=== PATIENT | female | born 1975 | race Caucasian/White ===

== ENCOUNTER 2019-03-10 09:34 | Inpatient (IN) | payer OTHER ==
[2019-03-07 14:30] VITALS: BMI 24.7
--- NOTE | 2019-03-09 14:30 | HP ---
Admitting History and Physical - Primary Care Physician PCP: Erich Farmer - Admission Chief Complaint: left breast cancer History of Present Illness: Patient is a 43 yo female noted to have a suspicious area of enhancement in the left breast at 1-3 oclock on screening MRI. Patient underwent an MRI guided core bx on 01/2019 showing DCIS, ER and LA positive. 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 History Source: Patient - Past Medical History Pulmonary: Yes: Asthma ...LMP: 02/11/19 - Past Surgical History Additional Past Surgical History: bilateral breast augmentation 2002 - Advance Directives Advance Directives: Yes: Health Care Proxy - Smoking History Smoking history: Never smoked Have you smoked in the past 12 months: No - Alcohol/Substance Use Hx Alcohol Use: Yes (SOCIAL) Home Medications - Allergies Allergies/Adverse Reactions: Allergies Allergy/AdvReac Type Severity Reaction Status Date / Time Penicillins Allergy Severe Hives Verified 03/07/19 14:19 - Home Medications Home Medications: Ambulatory Orders Albuterol Sulfate Inhaler - [Ventolin Hfa Inhaler -] 1 - 2 inh PO PRN PRN Zolpidem Tartrate [Ambien] 10 mg PO HS 03/07/19 Family Medical History Family Hx Cancer: Mother (breast cancer at 63), Sister (breast cancer at 42) Other Family History: maternal aunt breast cancer at 50 Review of Systems - Review of Systems Eyes: reports: Blurred Vision Psychiatric: reports: Anxiety Physical Examination Constitutional: Yes: Well Nourished, Calm Breast(s): Yes: Other (D-cup breasts. Left 1200 area of bruising noted at site of bx. No suspisious masses or adenopathy noted bilaterally.) Problem List - Problems (1) Breast cancer Code(s): C50.919 - MALIGNANT NEOPLASM OF UNSP SITE OF UNSPECIFIED FEMALE BREAST Qualifiers: Laterality: left Assessment/Plan Plan, bilateral mastectomy with implant reconstruction and left sentinel node bx poss andx, lympho
[2019-03-10] MEDS ORDERED: GENTAMICIN SO4 80 MG/2 ML VIAL ONE (14:28)
[2019-03-10] MEDS ORDERED: ceFAZolin SODIUM 1 GM VIAL ONE (14:28)
[2019-03-10] MEDS ORDERED: ISOSULFAN BLUE 10 MG/ML VIAL SQ ONE (14:29)
[2019-03-10] MEDS ORDERED: BUPIVACAINE LIPOSOME/PF (EXPAREL) 266 MG/20 ML VIAL ONE (14:39)
[2019-03-10] MEDS ORDERED: BUPIVACAINE HCL/PF 2.5 MG/ML - 30 ML VIAL IJ ONE (14:40)
[2019-03-10] MEDS ORDERED: HYDROmorphone HCL/PF 1 MG/ML AMP ONE (14:53)
[2019-03-10] MEDS ORDERED: ROCURONIUM BROMIDE 50 MG/5 ML SYRINGE ONE ×2 (14:53→17:01)
[2019-03-10] MEDS ORDERED: PROPOFOL 20 ML ONE ×3 (14:53)
[2019-03-10] MEDS ORDERED: MIDAZOLAM HCL 2 MG/2 ML SINGLE DOSE VIAL ONE (14:54)
[2019-03-10] MEDS ORDERED: BACITRACIN 15 GM TUBE TOPICAL OINTMENT ONE (17:25)
[2019-03-10] MEDS ORDERED: oxyCODONE HCL 5 MG TABLET PO PRN (17:51)
[2019-03-10] MEDS ORDERED: ACETAMINOPHEN 325 MG TABLET (FP) PO PRN (17:51)
[2019-03-10] MEDS ORDERED: DEXTROSE 5%-0.45% SALINE 1,000 ML IV SCH (18:00)
[2019-03-10] MEDS ORDERED: NEOSTIGMINE METHYLSULFATE 0.5 MG/ML - 10 ML MDV ONE (18:03)
[2019-03-10] MEDS ORDERED: SUCCINYLCHOLINE CHLORIDE 200 MG/10 ML SYRINGE ONE (18:05)
[2019-03-10] MEDS ORDERED: BUPIVACAINE LIPOSOME/PF (EXPAREL) 266 MG/20 ML VIAL NR ONE (18:08)
[2019-03-10] MEDS ORDERED: BUPIVACAINE HCL/PF 0.25% (2.5MG/ML) 10 ML VIAL IJ ONE (18:09)
[2019-03-10] MEDS ORDERED: ONDANSETRON 4 MG/2 ML VIAL ONE (18:28)
[2019-03-10] MEDS ORDERED: ONDANSETRON 4 MG/2 ML VIAL IVPUSH PRN (18:39)
[2019-03-10] MEDS ORDERED: HYDROmorphone HCL CARPU-JECT 1 MG/1 ML DISP.SYRIN IVPUSH PRN (18:39)
[2019-03-10] MEDS ORDERED: LACTATED RINGERS SOLUTION 1,000 ML IV SCH (18:45)
[2019-03-10] MEDS ORDERED: ACETAMINOPHEN 325 MG TABLET (FP) ONE (19:24)
--- NOTE | 2019-03-10 20:43 | OP ---
DATE OF OPERATION: 03/10/2019 PREOPERATIVE DIAGNOSIS: Left breast ductal carcinoma in situ. POSTOPERATIVE DIAGNOSIS: Left breast ductal carcinoma in situ. PROCEDURE: Bilateral total nipple-sparing mastectomy through an inframammary approach with left axillary sentinel lymph node biopsy and removal of prior silicone implants with bilateral direct implant reconstruction with Cortiva. ANESTHESIA: General endotracheal anesthesia. PRIMARY SURGEON: Brittany Farmer MD INSTITUTIONAL CUSTODIAN: REMA Gomez Primary surgeon for the implant reconstructions is Dr. Brittany Billy. There were no complications. Briefly, the patient is a 43-year-old, G4, P2, premenopausal white female of [place] descent with a strong family history with a mother who had breast cancer at age 63, and her sister was found to have breast cancer at age 42 and underwent bilateral mastectomy. Her maternal aunt had breast cancer. The patient has a history of undergoing bilateral subpectoral saline implant reconstructions back in 2002. She underwent mammography and ultrasound, March 2018, which was negative, but MRI, January 07, 2019, showed some suspicious enhancement in the left breast 1 and 3 o'clock regions, and MRI core biopsy showed intermediate high-grade DCIS, which was ER/OK positive. MRIs were reviewed and it was felt that the cancer was far enough from the nipple that the patient could get a nipple-sparing mastectomy. She opted on bilateral mastectomies and was seen by Plastic Surgery preoperatively and chose to have direct implant reconstruction. The patient was brought in for the procedure on March 10, 2019. She first underwent a lymphoscintigraphy through a periareolar injection of technetium 99 in the left nipple-areolar complex, which was performed at [facility] and she was brought to the [facility] area. In the holding area, site verification was made and informed consent was obtained. She was marked preoperatively prior to entering the operating room. She was brought in to the operating room and laid on the OR table in a supine position. Venodynes were placed on the lower extremities prior to induction. She received 600 mg of clindamycin prior to incision. She underwent general endotracheal anesthesia. Both breasts were sterilely prepped and draped in the usual fashion. No blue dye was injected, given the nipple-sparing technique. The left axilla was prepped in the field. The left axillary sentinel lymph node biopsy was first performed. Incision was made just below the hair-bearing area of the left axilla and dissection was undertaken, and a blue hot lymph node was easily found in the level 1 region of the left axilla with a 10-second gamma count of 3405. A second node was found in the level 1 region with a 10-second gamma count of 704. Both of these nodes were sent down to Pathology for frozen section, came back negative, so no further nodes were removed. Background counts after removal of these 2 nodes was 72, and no other hot nodes were found. Hemostasis was achieved. At this point, the left breast mastectomy was first performed through an inframammary incision. The skin edges were everted and the breast was retracted inferiorly using Holland clamps. The skin flap was raised using the PEAK radiofrequency device superiorly to the level of the clavicle, medially to the level of the sternum, laterally to the level of the latissimus, and inferiorly below the level of the inframammary fold. The implant was taken out underneath the pectoralis major muscle. The breast was then removed off the pectoralis major muscle from inferior medial to superior lateral using electrocautery and completely removed intact. It was oriented with a long lateral and short superior suture and weighed to allow for appropriate cosmetic result. Specimen radiograph showed removal of both clips in question. A retroareolar biopsy was then taken underneath the left breast nipple-areolar complex, sent for frozen section, came back with some atypia but no cancer, so the nipple was left. A separate anterior margin was then taken around the 12 o'clock region of the left breast skin flap and sent for permanent section with a suture marking the biopsy cavity side. Skin flaps were inspected and trimmed for good cosmetic result to remove all visual breast tissue. Hemostasis was achieved and the wound was copiously irrigated with warm sterile saline. At this point, gloves and instruments were changed and the right mastectomy was performed, again through a symmetrical inframammary approach. The skin edges were everted and the breast was retracted inferiorly using Darin clamps. The skin flap was raised using the PEAK radiofrequency device superiorly to the level of the clavicle, medially to the level of the sternum, laterally to the level of the latissimus, and inferiorly below the level of the inframammary fold. The breast was taken down off the pectoralis major muscle using electrocautery, from inferior medial to superior lateral and the previous implant was also removed prior to removal of the breast. The breast was oriented with a long lateral and short superior suture and weighed to allow for appropriate cosmetic result. It was sent to Pathology in formalin. Skin flaps were inspected and trimmed for good cosmetic result to remove all visual breast tissue. A retroareolar biopsy was taken underneath the right breast nipple-areolar complex and sent for frozen section and came back negative, so the nipple was spared. Hemostasis was achieved and the wound was copiously irrigated with warm sterile saline. At this point, Dr. Billy became the primary surgeon to perform bilateral subpectoral direct implant reconstruction using Cortiva acellular dermal matrix, which was sutured into the inferolateral aspects of both pectoralis major muscle to allow for the direct implant reconstructions. Two Chas drains were placed around each implant and brought through separate stab incisions on the lateral skin flaps and sutured in place using 3-0 nylon suture. They were placed on DANNY self-bulb suction and all wounds were closed using interrupted 3-0 deep dermal PDS suture and a running 4-0 subcuticular PDS suture. Mastisol, Steri-Strips applied over the wounds. The axillary wound was closed as well using interrupted 3-0 deep dermal Vicryl suture and a running 4-0 subcuticular Biosyn suture. Again, Mastisol and Steri-Strips were applied over all the wounds and she was placed in a surgical bra postoperatively. The patient was extubated at the end of the case and will be recovered in the post-anesthesia care unit. She will be admitted postoperatively for pain and wound management. We did use the SPY skin perfusion device at the end of the mastectomy and after the reconstructions, which showed adequate skin perfusion of skin flaps and nipple-areolar complexes. All sponge and needle counts were correct at the end of the case and estimated blood loss was about 150 mL. She was hemodynamically stable throughout. BRITTANY FARMER M.D. [id number]
[2019-03-11] MEDS: oxyCODONE HCL 5 MG TABLET PO PRN ×4 (00:29→20:39)
[2019-03-11] MEDS: ZOLPIDEM TARTRATE 5 MG TABLET PO PRN ×2 (00:33→22:42)
[2019-03-11 08:08] LABS: HEMATOCRIT 32.6 % (32.4-45.2); HEMOGLOBIN 10.5 GM/dl (10.7-15.3); MCH 28.5 pg (25.7-33.7); MCHC 32.2 g/dl (32.0-36.0); MEAN CELL VOLUME 88.3 fl (80-96); MEAN PLT VOLUME 9.3 fl (7.5-11.1); PLATELET COUNT 179 K/MM3 (134-434); RDW 12.2 % (11.6-15.6); WHITE BLOOD COUNT 9.7 K/mm3 (4.0-10.8)
--- NOTE | 2019-03-11 09:08 | PN ---
Progress Note (short form) - Note Progress Note: Surgery POD #1 bilateral mastectomy with implant reconstruction and left sentinel node bx patient seen and examined at bedside. Patient states she had lots of pain overnight and had difficulty sleeping. She has been OOB and ambulating to bathroom-voiding, and tolerating her diet. She denies any CP, SOB, N/V fever or chills. Vital Signs Temp 98.3 F 03/11/19 05:00 Pulse 68 03/11/19 05:00 Resp 19 03/11/19 05:00 BP 104/52 L 03/11/19 05:00 Pulse Ox 95 03/11/19 07:25 Intake & Output 03/10/19 03/10/19 03/11/19 11:59 23:59 11:59 Intake Total 2200 1140 Output Total 580 30 Balance 1620 1110 Weight 140 lb Intake: IV 1700 900 Lactated Ringers Solution 900 1,000 ml @ 75 mls/hr IV ASDIR ARIANA Rx#:[id number] Oral 500 240 Output: Drainage 80 30 Left 40 20 Right 15 10 Urine 300 Void 300 Estimated Blood Loss 200 Other: Voiding Method Bedpan Toilet # Unmeasured Voids Void 1 2 Bowel Movement No No Height 5 ft 3 in Body Mass Index (BMI) 24.7 Weight Measurement Method Standing Scale CBC, BMP 03/11/19 07:25 PE: A&Ox3, NAD unlabored resp on RA Breast: Left breast with some dusky erythema around the areaola @ 3cm in size extending laterally. incisions c,d,i with steri strips in place and no evidence of active d/c. b/l JPs in place. B/L LE compartments soft supple and non-tender with +2 DP pulses. Problem List - Problems (1) Breast cancer Assessment/Plan: POD #1 patient doing well with some pain susy -increase Oxycodone Q4hr PRN pain -OOB as tolerated -keep incisions clean and dry -trend labs and drain output -d/c planning Code(s): C50.919 - MALIGNANT NEOPLASM OF UNSP SITE OF UNSPECIFIED FEMALE BREAST Qualifiers: Laterality: left
--- NOTE | 2019-03-11 09:44 | PN ---
Progress Note, Physician Chief Complaint: S/P bilateral mastectomy with implant reconstruction, left snbx POD#1 History of Present Illness: Patient was seen at the bedside and reports pain overnight but was able to sleep with benadryl. Patient is voiding and tolerating food well. - Current Medication List Current Medications: Active Medications Acetaminophen (Tylenol -) 650 mg PO Q4H PRN PRN Reason: FEVER Last Admin: 03/10/19 19:29 Dose: 650 mg Diphenhydramine HCl (Benadryl Injection -) 12.5 mg IVPB Q4H PRN PRN Reason: FOR ITCHING Last Admin: 03/11/19 02:49 Dose: 12.5 mg Heparin Sodium (Porcine) (Heparin -) 5,000 unit SQ BID ARIANA Dextrose/Sodium Chloride (D5-1/2ns -) 1,000 mls @ 100 mls/hr IV ASDIR ARIANA Levofloxacin (Levaquin 500 Mg Premixed Ivpb -) 500 mg in 100 mls @ 100 mls/hr IVPB DAILY ARIANA; Protocol Lactated Ringer's (Lactated Ringers Solution) 1,000 mls @ 75 mls/hr IV ASDIR ARIANA Ondansetron HCl (Zofran Injection) 4 mg IVPUSH Q6H PRN PRN Reason: NAUSEA AND/OR VOMITING Last Admin: 03/10/19 18:42 Dose: 4 mg Oxycodone HCl (Roxicodone -) 5 mg PO Q4H PRN PRN Reason: PAIN LEVEL 1-5 Stop: 03/11/19 18:38 Last Admin: 03/11/19 05:56 Dose: 5 mg Zolpidem Tartrate (Ambien -) 5 mg PO HS PRN PRN Reason: Insomnia Last Admin: 03/11/19 00:33 Dose: 5 mg - Objective Vital Signs: Vital Signs Temperature 98.3 F 03/11/19 05:00 Pulse Rate 68 03/11/19 05:00 Respiratory Rate 19 03/11/19 05:00 Blood Pressure 104/52 L 03/11/19 05:00 O2 Sat by Pulse Oximetry (%) 95 03/11/19 07:25 Constitutional: Yes: Well Nourished, Calm Breast(s): Yes: Other (Flaps with minimal bruising noted. Left lateral breast flap erythematous area noted without discharge. The steris are C/D/I. Bilateral JPs with serosanginous discharge noted.) Labs: CBC, BMP 03/11/19 07:25 Problem List - Problems (1) Breast cancer Code(s): C50.919 - MALIGNANT NEOPLASM OF UNSP SITE OF UNSPECIFIED FEMALE BREAST Qualifiers: Laterality: left Assessment/Plan Assess S/P bilateral mastectomy with implant reconstruction POD#1 Plan: OOB today with assistance Teach DANNY monitoring Pain meds and axbx as ordered IS 10xs/hourly Plan for discharge in am
--- NOTE | 2019-03-11 10:28 | PN ---
Progress Note (short form) - Note Progress Note: 43F s/p bilateral mastectomy and implant reconstruction, SN biopsy under GA. Report of pain overnight, managed with PO and IV analgesics. Vital Signs Temperature 98.3 F 03/11/19 05:00 Pulse Rate 68 03/11/19 05:00 Respiratory Rate 19 03/11/19 05:00 Blood Pressure 104/52 L 03/11/19 05:00 O2 Sat by Pulse Oximetry (%) 95 03/11/19 07:25 Active Medications Generic Name Dose Route Start Last Admin Trade Name Freq PRN Reason Stop Dose Admin Acetaminophen 650 mg 03/10/19 17:51 03/10/19 19:29 Tylenol - PO 650 mg Q4H PRN Administration FEVER Diphenhydramine HCl 12.5 mg 03/10/19 20:15 03/11/19 02:49 Benadryl Injection - IVPB 12.5 mg Q4H PRN Administration FOR ITCHING Heparin Sodium (Porcine) 5,000 unit 03/11/19 22:00 Heparin - SQ BID ARIANA Dextrose/Sodium Chloride 1,000 mls @ 100 mls/hr 03/10/19 18:00 D5-1/2ns - IV ASDIR ARIANA Levofloxacin 500 mg in 100 mls @ 100 mls/hr 03/11/19 10:00 Levaquin 500 Mg Premixed Ivpb - IVPB DAILY ARIANA Protocol Lactated Ringer's 1,000 mls @ 75 mls/hr 03/10/19 18:45 Lactated Ringers Solution IV ASDIR ARIANA Ondansetron HCl 4 mg 03/10/19 18:39 03/10/19 18:42 Zofran Injection IVPUSH 4 mg Q6H PRN Administration NAUSEA AND/OR VOMITING Oxycodone HCl 5 mg 03/10/19 18:39 03/11/19 05:56 Roxicodone - PO 03/11/19 18:38 5 mg Q4H PRN Administration PAIN LEVEL 1-5 Zolpidem Tartrate 5 mg 03/10/19 17:51 03/11/19 00:33 Ambien - PO 5 mg HS PRN Administration Insomnia - On PO analgesic regimen - No anesthetic complications
[2019-03-11] MEDS ORDERED: BENZOCAINE/MENTH/CETYLPYRD CL 1 EACH LOZENGE MM PRN (12:07)
--- NOTE | 2019-03-11 20:32 | OP ---
DATE OF OPERATION: 03/10/2019 This is a procedure with Brittany Farmer M.D., for bilateral implant and AlloDerm placement and acellular dermal matrix placement in the usual fashion. PREOPERATIVE DIAGNOSES: 1. Bilateral acquired chest wall deformity status post bilateral mastectomy (611.89). 2. Personal history of genetic carcinoma. POSTOPERATIVE DIAGNOSES: 1. Bilateral acquired chest wall deformity status post bilateral mastectomy (611.89). 2. Personal history of genetic carcinoma. PROCEDURE: 1. Right immediate breast reconstruction utilizing immediate insertion of silicone breast implant and AlloDerm reconstruction. 2. Left immediate breast reconstruction utilizing immediate insertion of silicone breast implant and AlloDerm reconstruction. 3. Intravenous injection of indocyanine green dye and intraoperative diagnostic evaluation of non-coronary intraoperative fluorescein vascular angiography x 2. SURGEON: Dr. Michel Billy ANESTHESIA: GENERAL OPERATIVE PROCEDURE IN DETAIL: The patient was taken to the operating room. After induction of general anesthesia in the supine position, both arms were extended and padded. Venodyne boots were placed. The entire chest wall was painted with ChloraPrep solution over its entire extent, and sterile drapes were placed in the usual fashion. The markings, which had been made in the standing position preoperatively, were reoutlined with the patient's knowledge. Time-out procedure was performed. Attention was turned by Dr. Billy to the mastectomies. Bilateral inframammary incisions were made and Dr. Billy performed mastectomies. This will be dictated under separate cover. Upon completion of the mastectomies, the wounds were copiously irrigated and attention was turned to the right breast. A subpectoral dissection was begun on the right breast, superiorly from the second rib, medially to the sternal fibers, and down to the inframammary fold, elevating the pectoralis major muscle from its insertion. The patient had breast tissue and implant removal of 243 g of tissue with the implant weighing 400 g. The left breast had 299 g of tissue removed, and the implant weighed 363 g. The patient had Cortiva 1 mm tailored allograft dermis large size placed bilaterally in a subpectoral position. The patient also had implants placed of Sientra smooth, round high-profile style 107, 650 mL placed bilaterally. She had SPY intraoperative angiogram which showed good blood flow to the nipple areolar complexes bilaterally. The left implant was placed and then sutured with 3-0 Vicryl suture continued along the inframammary fold, completely covering the implant itself. The exact same procedure was carried out symmetrically on the opposite breast. Good symmetry was seen in the sitting position. After the implants were in place, the patient was injected with 10 mL of indocyanine green dye and the Spy imaging system was brought into the field. The skin flowed to the right and left breasts and the nipple areolar complex, and the entire skin flaps were evaluated and seen to be viable with good blood flow. Two Chas drains were brought out through separate stab wounds laterally. The Smart Infuser pump catheter was inserted medially and into the subpectoral position. Both wounds were closed symmetrically using 3-0 PDS suture on the deep tissue, 3-0 in a deep dermal fashion, and 4-0 in a subcuticular fashion. Both wounds were dressed sterilely with Mastisol and Steri-Strips with a surgical bra and a compression strap. The patient tolerated the procedure well. She was awakened, extubated and transferred to the recovery room in satisfactory condition. The clinical assistant professor was present during the entire portion of the operation and closure. BRITTANY BILLY M.D. [id number]
[2019-03-11] MEDS: HEPARIN NA (PORCINE) 5,000 UNITS/ML 1ML VIAL SQ SCH (22:42)
[2019-03-12] MEDS: oxyCODONE HCL 5 MG TABLET PO PRN ×3 (00:48→06:25)
[2019-03-12] MEDS: POLYETHYLENE GLYCOL 3350 119 GM BTL PO SCH ×2 (06:43→09:00)
[2019-03-12] MEDS: HEPARIN NA (PORCINE) 5,000 UNITS/ML 1ML VIAL SQ SCH (09:00)
[2019-03-12 11:06] VITALS: BP 101/50; PULSE 82; TEMP 98.9
--- NOTE | 2019-03-15 14:36 | SURG ---
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 Right immediate breast reconstruction utilizing immediate insertion of silicone breast implant and Alloderm reconstruction 2. Left immediate breast reconstruction utilizing immediate insertion of silicone breast implant and Alloderm reconstruction I was present for the entirety of the operative procedure. For further detail, please refer to operative report. Visit type - Case Type Case Type: Scheduled - Emergency Emergency Visit: No - New patient This patient is new to me today: Yes Date on this admission: 03/15/19 - Critical Care Critical Care patient: No
--- NOTE | 2019-03-16 15:54 | PATH ---
Surgical Pathology Report Patient Name: MAE GUTIERRES Med. Rec. #: [id number] /Age/Gender: 1975 (Age: 43) / F Account: [id number] Location: [facility] Taken: 03/10/2019 Received: 03/10/2019 Reported: 03/16/2019 Physicians: Erich Farmer M.D. Specimen(s) Received A: LEFT AXILLARY SENTINEL NODE #1 (FS) B: LEFT AXILLARY SENTINEL NODE #2 (FS) C: RIGHT BREAST RETROAREOLAR BX (FS) D: LEFT BREAST RETROAREOLAR BX (FS) E: RIGHT BREAST EXPLANT F: RIGHT BREAST G: LEFT BREAST EXPLANT H: LEFT BREAST I: LEFT BREAST ANTERIOR MARGIN Clinical History Left breast CA Intraoperative Consult Diagnosis A. Left axilla, sentinel node #1, frozen section: One negative lymph node (0/1). B. Left axilla, sentinel node #2, frozen section: One negative lymph node (0/1). C. Retroareola, right, frozen section: Negative for malignancy. D. Retroareola, left, frozen section: Atypical ductal hyperplasia. Jimbo Daley03/10/19 Final Diagnosis A. LYMPH NODE, LEFT AXILLARY SENTINEL, EXCISION (FS): ONE LYMPH NODE, NEGATIVE FOR METASTATIC CARCINOMA (0/1). B. LYMPH NODE, LEFT AXILLARY SENTINEL #2, EXCISION (FS): ONE LYMPH NODE, NEGATIVE FOR METASTATIC CARCINOMA (0/1). C. RETROAREOLA, RIGHT BREAST, BIOPSY (FS): BENIGN BREAST TISSUE; NEGATIVE FOR MALIGNANCY. D. RETROAREOLA, LEFT BREAST, BIOPSY (FS): BENIGN BREAST TISSUE; NEGATIVE FOR MALIGNANCY. Note: Focus of atypical ductal hyperplasia (ADH) present in frozen section slides is no longer present on permanent sections. E. EXPLANT, RIGHT BREAST: IMPLANT, DESCRIBED (GROSS EXAMINATION ONLY). F. BREAST, RIGHT, NIPPLE-SPARING MASTECTOMY: BENIGN BREAST TISSUE SHOWING FIBROADENOMA, PROLIFERATIVE FIBROCYSTIC CHANGES AND FIBROUS CAPSULE. G. EXPLANT, LEFT BREAST: IMPLANT, DESCRIBED (GROSS EXAMINATION ONLY). H. BREAST, LEFT, NIPPLE-SPARING MASTECTOMY: MULTIFOCAL DUCTAL CARCINOMA IN SITU (DCIS), MICROPAPILLARY AND CRIBRIFORM TYPE, INTERMEDIATE TO HIGH NUCLEAR GRADE, WITH MODERATE NECROSIS, FEW ASSOCIATED CALCIFICATIONS AND LOBULAR EXTENSION, PRESENT IN THE UPPER OUTER QUADRANT (UOQ). DCIS IS PRESENT IN FOUR OF NINETEEN SLIDES (4/19), WITH THE LARGEST CONTIGUOUS FOCUS OF DCIS MEASURING 7 MM IN GREATEST DIMENSION, MICROSCOPICALLY. DCIS IS FOCALLY CLOSE TO (< 1 MM) THE ANTERIOR MARGIN. SEE SPECIMEN I FOR FINAL ANTERIOR MARGIN. PRIOR BIOPSY SITE CHANGES ARE PRESENT. REMAINING BREAST TISSUE SHOWS FIBROADENOMA, PROLIFERATIVE FIBROCYSTIC CHANGES, COLUMNAR CELL CHANGE AND FIBROUS CAPSULE. PATHOLOGIC STAGE (pTNM): pTis (DCIS) pN0. SEE ALSO DCIS CASE SUMMARY BELOW. Note: E-Cadherin immunostain (performed at [facility] on block H9) is positive in the foci of DCIS with lobular extension. This finding supports the diagnosis. I. BREAST, LEFT, ANTERIOR MARGIN, EXCISION: FEW FOCI OF DCIS, INTERMEDIATE NUCLEAR GRADE, WITH LOBULAR EXTENSION PRESENT IN THREE OF FIVE SLIDES (3/5). THE NEW MARGIN IS UNINVOLVED BY DCIS; DCIS IS FOCALLY AT 1 MM FROM THE CLOSEST NEW MARGIN. Comments DCIS of the Breast: Surgical Pathology Cancer Case Summary (Based on AJCC TNM 8 th edition) Procedure _X_ Total mastectomy (including nipple-sparing and skin-sparing mastectomy) Specimen Laterality _X_ Left Size (Extent) of DCIS Estimated size (extent) of DCIS (greatest dimension using gross and microscopic evaluation): at least (millimeters) 7 mm Number of blocks with DCIS: 7 Number of blocks examined: 24 (based on specimens H & I) Histologic Type _X_ Ductal carcinoma in situ Architectural Patterns _X_ Cribriform _X_ Micropapillary Nuclear Grade _X_ Grade II (intermediate) to III (high) Necrosis _X_ Present, focal (small foci or single cell necrosis) Margins _X_ Uninvolved by DCIS Distance from closest margin (millimeters): 1 mm Specify closest margin: final anterior margin (I) Regional Lymph Nodes _X_ Uninvolved by tumor cells Number of Lymph Nodes Examined: 2 Number of [place] Nodes Examined (if applicable):2 Pathologic Stage Classification (pTNM, AJCC 8th Edition) Primary Tumor (pT) _X_ pTis (DCIS): Ductal carcinoma in situ Regional Lymph Nodes (pN) _X_ pN(sn)0 Microcalcifications _X_ Present in DCIS _X_ Present in nonneoplastic tissue Biomarker Studies Results of ER & UT studies will be reported separately in an addendum. Electronically Signed Lou Antunez M.D. Addendum Reported: 03/17/2019 Addendum Diagnosis Results of ER and UT studies performed on block H9 at [facility] are as follows: ER (clone [id number] mouse monoclonal antibody by [employer]):> 95 % nuclear staining with strong intensity (positive). UT (clone16 mouse monoclonal antibody by [employer]): ~30 % nuclear staining with moderate to strong intensity (positive). Positive and negative controls (internal if applicable) show appropriate results. Formalin fixation time is within current ASCO/CAP recommendations for ER, UT and Her2 testing. Time to formalin fixation is not given. Lou Antunez M.D. Gross Description A. Received fresh for frozen section evaluation, labeled "left axillary sentinel node #1" is a 2.8 x 1.1 x 0.4 cm lymph node with attached fatty tissue. The lymph node is bisected and frozen section is performed on the lymph node. The frozen section residue is entirely submitted in two cassettes as follows: FSA1- one bisected half of lymph node; FSA2- other bisected half of lymph node. B. Received fresh for frozen section evaluation, labeled "left axilla, sentinel node #2" is a 2.4 x 1.2 x 0.3 cm lymph node with attached fatty tissue. Frozen section is performed on the lymph node. The frozen section residue is entirely submitted in one cassette labeled FSB. C. Received fresh for frozen section evaluation, labeled "right retroareolar biopsy" is a 1.3 x 1.0 x 0.2 portion of pink and red hughes tissue. Frozen section is performed on the tissue. The frozen section residue is entirely submitted in one cassette labeled FSC. D. Received fresh for frozen section evaluation, labeled "left retroareolar biopsy" is a 1.5 x 1.0 x 0.2 portion of pink and red hughes tissue. Frozen section is performed on the tissue. The frozen section residue is entirely submitted in one cassette labeled FSD. E. Received fresh labeled "right breast explant," is a 12.5 cm in diameter x 3.0 cm in depth clear, rubbery, intact breast implant. No soft tissue is present. No sections are submitted, gross only. F. Received in formalin labeled "right breast 243 g," is a 16.0 x 13.5 x 2.0 cm right mastectomy specimen with a short suture marking the superior aspect and a long suture marking the lateral aspect of the specimen, per the surgeon. There is no skin or nipple present. The deep margin displays an exposed fibrous capsule spanning the upper outer and lower outer quadrants. The anterior soft tissue margin is inked green and the deep margin is inked black. The specimen is serially sectioned from lateral to medial. Sectioning reveals abundant dense, white, focally firm fibrous tissue. Bridge Manager sections are submitted in 12 cassettes as follows: 1-2-upper outer quadrant; 3-4-lower outer quadrant; 5-fibrous capsule; 6-7-upper inner quadrant; 8-10-lower inner quadrant; 11-anterior soft tissue margin; 12-deep margin. G. Received fresh labeled "left breast explant," is a 12.5 cm in diameter x 3.0 cm in depth clear, rubbery, intact breast implant. No soft tissue is present. No sections are submitted, gross only. H. Received in formalin labeled "left breast 299 g," is a 16.0 x 15.0 x 2.2 cm left mastectomy specimen with a short suture marking the superior aspect and a long suture marking the lateral aspect of the specimen, per the surgeon. There is no skin or nipple present. The deep margin displays an exposed fibrous capsule spanning the upper outer and lower outer quadrants. The anterior soft tissue margin is inked green and the deep margin is inked black. The specimen is serially sectioned from medial to lateral. Sectioning reveals 2 separate hemorrhagic biopsy cavities in the upper outer quadrant (UOQ). The first biopsy cavity is 0.3 cm from the anterior soft tissue margin and surrounded by white fibrous tissue. There is a rico metallic biopsy clip identified within the cavity. The second biopsy cavity is 2 cm inferior to the first biopsy cavity and abuts the anterior soft tissue margin. The cavity is surrounded by abundant dense white fibrous tissue. No definitive mass is identified. The remaining breast parenchyma displays multifocal white fibrous tissue. Bridge Manager sections are submitted in 19 cassettes as follows: 1-4-first biopsy cavity, each with anterior soft tissue margin; 5-11-second biopsy cavity, each with anterior soft tissue margin; 12-fibrous capsule; 13-14-lower outer quadrant; 15-16-upper inner quadrant; 17-18-lower inner quadrant; 19-deep margin. Time to formalin fixation: Not given Total formalin fixation time: Approximately 24 hours I. Received in formalin labeled "left breast anterior margin," is a 4.0 x 2.0 x 0.6 cm portion of fibroadipose tissue with a suture marking the biopsy cavity side, per the surgeon. The new margin is inked green and the specimen is serially sectioned. The specimen is entirely and sequentially submitted in 5 cassettes. AE/03/10/2019 ebram/03/10/2019
== END 2019-03-12 12:30 | disposition home or self-care (01) | DRG 362 ==
LOC: EDSTATUS 12:00 → FM/S 12:56 → EDSTATUS 15:15 → FM/S 03-11 00:01
PROVIDERS: ADMIT Surgery Surgical Oncology; ATTEND Surgery Surgical Oncology
PROC: 4A1GXSH Monitoring of Skin and Breast Vascular Perfusion using Indocyanine Green Dye, External Approach (ICD-10-PCS; 2019-03-10)
PROC: 0HTV0ZZ Resection of Bilateral Breast, Open Approach (ICD-10-PCS; principal; 2019-03-10 15:50)
PROC: 07B60ZX Excision of Left Axillary Lymphatic, Open Approach, Diagnostic (ICD-10-PCS; 2019-03-10 15:50)
PROC: 0HUV0JZ Supplement Bilateral Breast with Synthetic Substitute, Open Approach (ICD-10-PCS; 2019-03-10 15:50)
DX: C50.912 Malignant neoplasm of unspecified site of left female breast (principal); Z17.0 Estrogen receptor positive status [ER+]; M95.4 Acquired deformity of chest and rib; J45.909 Unspecified asthma, uncomplicated
CPT/HCPCS: 36415; 78195-TC; 84703; 85027; 88300-TC; 88307-TC; 88331-TC; 94760; A9541; J1644

== ENCOUNTER → 2020-10-04 | Day surgery (SDC) | payer OTHER ==
[2020-09-27 11:13] VITALS: BMI 26.5
[~2020-10-04] MED LIST: MIDAZOLAM HCL 2 MG/2 ML SINGLE DOSE VIAL ONE; PROPOFOL 20 ML ONE; SUCCINYLCHOLINE CHLORIDE 200 MG/10 ML SYRINGE ONE
== END | disposition home or self-care (01) ==
LOC: FASU 07:46
PROVIDERS: ATTEND Plastic Surgery
DX: Z53.8 Procedure and treatment not carried out for other reasons (principal)
CPT/HCPCS: 84703

== ENCOUNTER 2020-10-25 08:14 | Day surgery (SDC) | payer OTHER ==
[2020-10-19 13:43] VITALS: BMI 26.5
[2020-10-25] MEDS ORDERED: KETOROLAC TROMETHAMINE 30 MG/1 ML VIAL ONE (10:15)
[2020-10-25] MEDS ORDERED: ONDANSETRON 4 MG/2 ML VIAL ONE (10:15)
[2020-10-25] MEDS ORDERED: DEXAMETHASONE SOD PHOSPHATE 4 MG/1 ML VIAL ONE (10:15)
[2020-10-25] MEDS ORDERED: ceFAZolin SODIUM 1 GM VIAL ONE ×2 (10:15→10:31)
[2020-10-25] MEDS ORDERED: PROPOFOL 20 ML ONE ×2 (10:16)
[2020-10-25] MEDS ORDERED: MIDAZOLAM HCL 2 MG/2 ML SINGLE DOSE VIAL ONE (10:16)
[2020-10-25] MEDS ORDERED: fentaNYL CITRATE 250 MCG/5 ML VIAL ONE (10:16)
[2020-10-25] MEDS ORDERED: LIDOCAINE HCL 2% JELLY (5 ML/TUBE) ONE (10:17)
[2020-10-25] MEDS ORDERED: LIDOCAINE HCL/PF 2% SDV 5ML VIAL ONE (10:17)
[2020-10-25] MEDS ORDERED: SCOPOLAMINE HYDROBROMIDE 1 PATCH PATCH.TD72 ONE (10:23)
[2020-10-25] MEDS ORDERED: LIDOCAINE HCL 1%, 10 MG/ML (20ML VIAL) ONE ×2 (10:32→11:00)
[2020-10-25] MEDS ORDERED: LIDOCAINE 1%/EPI 1:100000 (20 ML MULTI DOSE VIAL) ONE (10:32)
[2020-10-25] MEDS ORDERED: GENTAMICIN SO4 80 MG/2 ML VIAL ONE (10:32)
[2020-10-25] MEDS ORDERED: EPINEPHrine/PF 1 MG/1 ML (1:1,000) AMPULE ONE (10:32)
[2020-10-25] MEDS ORDERED: ALBUTEROL SO4 HFA INHALER IH ONE (10:34)
[2020-10-25] MEDS ORDERED: ONDANSETRON 4 MG/2 ML VIAL IVPUSH PRN (12:38)
[2020-10-25] MEDS ORDERED: PROMETHAZINE HCL 25 MG/1 ML VIAL IVPB PRN (12:38)
[2020-10-25] MEDS ORDERED: oxyCODONE HCL 5 MG TABLET PO PRN (12:38)
[2020-10-25] MEDS ORDERED: oxyCODONE HCL 5 MG TABLET ONE ×2 (13:44→14:35)
[2020-10-25] MEDS: oxyCODONE HCL 5 MG TABLET PO PRN ×4 (13:45→15:35)
[2020-10-25 15:37] VITALS: TEMP 97.7
[2020-10-25 15:49] VITALS: BP 115/72; PULSE 75
== END 2020-10-25 15:00 | disposition home or self-care (01) ==
LOC: FASU 08:14
PROVIDERS: ATTEND Plastic Surgery
PROC: 0JX60ZC Transfer Chest Subcutaneous Tissue and Fascia with Skin, Subcutaneous Tissue and Fascia, Open Approach (ICD-10-PCS; 2020-10-25)
PROC: 0HRV37Z Replacement of Bilateral Breast with Autologous Tissue Substitute, Percutaneous Approach (ICD-10-PCS; principal; 2020-10-25 11:10)
PROC: 0JD83ZZ Extraction of Abdomen Subcutaneous Tissue and Fascia, Percutaneous Approach (ICD-10-PCS; 2020-10-25 11:10)
DX: M95.4 Acquired deformity of chest and rib (principal); Z90.13 Acquired absence of bilateral breasts and nipples; T85.41XA Breakdown (mechanical) of breast prosthesis and implant, initial encounter; Y83.8 Other surgical procedures as the cause of abnormal reaction of the patient, or of later complication, without mention of misadventure at the time of the procedure; Y92.9 Unspecified place or not applicable
CPT/HCPCS: 84703; 88305-TC; 94760